=== PATIENT | female | born 1945 | race Caucasian/White ===

== ENCOUNTER 2016-11-22 10:14 | Outpatient (CLI) | payer OTHER | END 2016-11-22 20:00 | disposition home or self-care (01) | LOC: SRD 10:14 | PROVIDERS: ATTEND Internal Medicine | DX: Z12.31 Encounter for screening mammogram for malignant neoplasm of breast (principal) | CPT/HCPCS: 77067; G0202 ==

== ENCOUNTER 2018-01-07 09:19 | Outpatient (CLI) | payer OTHER | END 2018-01-07 21:11 | disposition home or self-care (01) | LOC: SMA 09:19 | PROVIDERS: ATTEND Internal Medicine | DX: Z12.31 Encounter for screening mammogram for malignant neoplasm of breast (principal) | CPT/HCPCS: 77067 ==

== ENCOUNTER 2019-03-20 09:50 | Outpatient (CLI) | payer OTHER | END 2019-03-20 21:15 | disposition home or self-care (01) | LOC: SMA 09:50 | PROVIDERS: ATTEND Internal Medicine | DX: Z12.31 Encounter for screening mammogram for malignant neoplasm of breast (principal) | CPT/HCPCS: 77067 ==

== ENCOUNTER → 2019-05-14 | Outpatient (CLI) | payer OTHER | END | disposition home or self-care (01) | LOC: SRD 10:50 | PROVIDERS: ATTEND Internal Medicine | DX: Z01.818 Encounter for other preprocedural examination (principal) | CPT/HCPCS: 71046-TC ==

== ENCOUNTER 2019-12-31 15:59 | Outpatient (CLI) | payer OTHER | END 2019-12-31 20:36 | disposition home or self-care (01) | LOC: SRD 15:59 | PROVIDERS: ATTEND Internal Medicine | DX: Z01.818 Encounter for other preprocedural examination (principal) | CPT/HCPCS: 71046-TC ==

== ENCOUNTER 2020-09-05 12:56 | Outpatient (CLI) | payer OTHER | END 2020-09-05 20:48 | disposition home or self-care (01) | LOC: SMA 12:56 | PROVIDERS: ATTEND Internal Medicine | DX: Z12.31 Encounter for screening mammogram for malignant neoplasm of breast (principal) | CPT/HCPCS: 77067 ==

== ENCOUNTER 2022-04-10 09:26 | Outpatient (CLI) | payer OTHER | END 2022-04-10 18:32 | disposition home or self-care (01) | LOC: SRD 09:26 | PROVIDERS: ATTEND Internal Medicine | DX: Z12.31 Encounter for screening mammogram for malignant neoplasm of breast (principal); N64.89 Other specified disorders of breast | CPT/HCPCS: 77067 ==

== ENCOUNTER 2024-04-19 14:04 | Emergency (ER) | payer BC, OTHER ==
[~2024-04-19] VITALS: Ht 149.9 cm; Wt 64.4 kg
[2024-04-19 14:04] VITALS: BP_SYST 149; PULSE 77; RESP 18; TEMP 96.9; O2SAT 97
[2024-04-19] MEDS: IBUPROFEN 400 MG TABLET PO ONE (18:12)
[2024-04-19] MEDS ORDERED: IBUP-2018 PO (19:11)
[2024-04-19 19:32] VITALS: BP_SYST 133; PULSE 75; RESP 18; TEMP 97.1; O2SAT 98
== END 2024-04-19 19:26 | disposition home or self-care (01) ==
LOC: SED 14:04
DX: S63.681A Other sprain of right thumb, initial encounter (principal); X58.XXXA Exposure to other specified factors, initial encounter; Y93.89 Activity, other specified; Y92.89 Other specified places as the place of occurrence of the external cause; Y99.8 Other external cause status
CPT/HCPCS: 99283